=== PATIENT | female | born 1955 | race Caucasian/White ===

== ENCOUNTER 2017-09-09 14:02 | Observation (INO) | payer MEDICARE ==
[2017-09-09 15:10] LABS: BASOPHIL % 0.1 % (0.0-0.4); Basophil (Absolute #) 0.01 (0-0.4); Eosinophil % 3.7 % (0.00-5.0); Eosinophil (Absolute #) 0.26 (0-0.5); Granulocyte Absolute (ANC) 3.78 (1.4-6.9); Granulocytes % 53.9 % (36.0-66.0); Hematocrit 31.5 % (35-47); Hemoglobin 10.4 gm/dl (12.0-16.0); INR 0.99 (0.8-3.0); Lymphocyte (Absolute #) 2.43 (1.0-4.6); Lymphocytes % 34.7 % (24.0-44.0); Mean Corpuscular Hemoglobin 28.7 pg (26-32); Mean Platelet Volume 10.8 fl (6-9.5); Monocyte (Absolute #) 0.53 (0.0-1.3); Monocytes % 7.6 % (0.0-12.0); Platelet Count 254 K/mm3 (150-450); Red Blood Count 3.62 M/mm3 (4.1-5.4); Red Cell Distribution Width 14.7 % (11.5-14.0)
[2017-09-09 15:15] LABS: ALBUMIN 3.9 g/dL (3.5-5.0); ANION GAP 12.9 MEQ/L (5-15); BILIRUBIN,TOTAL 0.5 mg/dL (0.2-1.3); Calcium 9.1 mg/dL (8.4-10.2); Creatinine 1 1.19 mg/dL (0.52-1.04); Total Protein 6.5 g/dL (6.3-8.2)
[2017-09-09] MEDS ORDERED: Sodium Chloride 0.9% 1000 ML 1,000 ML IV SCH (15:15)
--- NOTE | 2017-09-09 18:45 | ERPHSYRPT ---
- History of Present Illness Time Seen by Provider: 09/09/17 14:30 Source: patient Exam Limitations: clinical condition Patient Subjective Stated Complaint: dizziness while visiting at the senior care. states has had a hx of dizziness x 1 year.. did not eat tioday. Triage Nursing Assessment: alert and oriented with no dizziness at this time.. has had episodes of dizziness x 1 year. states has had visual problems intermittently x 1 year. ATK[place]SON able to ambulate to BR on arrival to ER with no difficulty and steady gait. 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 Physician History: PATIENT WITH A HISTORY OF HYPERTENSION COMPLAINS OF ACUTE ONSET OF DYSPHASIA AND DYSARTHRIA WHILE VISITING FAMILY MEMBER, DURATION OF 20 MINUTES. HAD PREVIOUS EPISODE IN THE PAST, EVALUATED BY NEUROLOGIST. STATES SYMPTOMS RESOLVED PRIOR TO ARRIVAL. DENIES HEADACHE, BLURRED VISION, FOCAL NUMBNESS, TINGLING OR WEAKNESS IN EXTREMITIES. Timing/Duration: today (20 MINUTES) Severity: moderate Character of Deficits: none Deficits: no difficulties Baseline/Normal Cognition: alert oriented x 3 Current Cognition: alert oriented x 3 Baseline Gait: walks w/o assistance Associated Symptoms: slurred speech Allergies/Adverse Reactions: Penicillins Allergy (Verified 09/09/17 15:13) sulfamethoxazole [From Bactrim] Allergy (Verified 09/09/17 15:14) trimethoprim [From Bactrim] Allergy (Verified 09/09/17 15:14) codeine Adverse Reaction (Verified 09/09/17 15:14) ibuprofen Adverse Reaction (Verified 09/09/17 15:14) Home Medications: Atorvastatin Calcium [Lipitor] 40 mg PO DAILY 09/09/17 [History] Cyclobenzaprine HCl [Flexeril] 10 mg PO TIDPRN PRN 09/09/17 [History] Gabapentin [Neurontin] 600 mg PO TID 09/09/17 [History] Lisinopril/Hydrochlorothiazide [Lisinopril-Hctz 20-12.5 mg Tab] 1 each PO DAILY 09/09/17 [History] Metformin HCl [Metformin HCl ER] 500 mg PO DAILY 09/09/17 [History] Nebivolol HCl 5 MG [Bystolic 5 MG] 5 mg PO DAILY 09/09/17 [History] PANTOPRAZOLE 40 mg Tablet [Protonix 40MG Tablet] 40 mg PO QAM 09/09/17 [ History] Ranolazine 500 MG [Ranexa 500 MG] 500 mg PO BID 09/09/17 [History] Tramadol HCl 50 mg [Ultram 50 mg] 100 mg PO Q8H PRN PRN 09/09/17 [History] Immunizations Up to Date: (unknown) - Review of Systems Constitutional: No Fever, No Chills Eyes: No Symptoms Ears, Nose, & Throat: No Symptoms Respiratory: No Cough, No Dyspnea Cardiac: No Chest Pain, No Edema, No Syncope Abdominal/Gastrointestinal: No Abdominal Pain, No Nausea, No Vomiting, No Diarrhea Genitourinary Symptoms: No Dysuria Musculoskeletal: No Symptoms, No Back Pain, No Neck Pain Skin: No Rash Neurological: Speech Changes, No Dizziness, No Focal Weakness, No Sensory Changes Psychological: No Symptoms Endocrine: No Symptoms All Other Systems: Reviewed and Negative - Past Medical History Pertinent Past Medical History: Yes Cardiac History: High Cholesterol, Hypertension Respiratory History: Asthma, COPD Musculoskeletal History: Osteoarthritis GI Medical History: GERD Other Medical History: fibromyalgia - Past Surgical History Past Surgical History: Yes Other Surgical History: states has had20 but unsure of exactly what - Social History Smoking Status: Former smoker Exposure to second hand smoke: No Drug Use: none Patient Lives Alone: No - Female History Hx Now: No - Nursing Vital Signs Nursing Vital Signs: Initial Vital Signs Temperature 97.8 F 09/09/17 14:22 Pulse Rate 47 L 09/09/17 14:22 Respiratory Rate 18 09/09/17 14:22 Blood Pressure 144/72 09/09/17 14:22 O2 Sat by Pulse Oximetry 98 09/09/17 14:22 Pain Scale Pain Intensity 0 - [place] Coma Scale Best Eye Response (Chaya): (4) open spontaneously Best Verbal Response (Chaya): (5) oriented Best Motor Response ([place]): (6) obeys commands Chaya Total: 15 - Physical Exam General Appearance: no apparent distress, alert Eye Exam: bilateral eye: normal inspection, PERRL, EOMI Ears, Nose, Throat Exam: normal ENT inspection, moist mucous membranes Neck Exam: normal inspection, non-tender, supple Respiratory: normal breath sounds, lungs clear, airway intact, No respiratory distress Cardiovascular: regular rate/rhythm, normal heart sounds, No edema Gastrointestinal: soft, No tenderness, No distention Back Exam: normal inspection Extremity Exam: normal inspection, No pedal edema Peripheral Pulses: carotid (R): 2+, carotid (L): 2+, femoral (R): 2+, femoral (L ): 2+, dorsalis-pedis (R): 2+, dorsalis-pedis (L): 2+ Mental Status: alert, 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 hearing, normal speech, tongue midline Coordination/Gait: normal finger to nose, normal gait DTR: bicep (R): 2+, bicep (L): 2+, tricep (R): 2+, tricep (L): 2+, knee (R): 2+ , knee (L): 2+, ankle (R): 2+, ankle (L): 2+ Skin Exam: normal color, warm, dry, No rash SpO2: 100 Oxygen Delivery: Nasal Cannula - Course EKG Interpreted by Me: RATE, Sinus Rhythm, Sinus Camilo - Radiology Exams Chest X-ray Interpretation: Interpreted by me, Reviewed by me (ELEVATION RIGHT HEMIDIAPHRAM) - CT Exams Head CT Interpretation: No/Intracranial Hemorrhag Ordered Tests: Active Orders 24 hr Category Date Time Status EKG-ER Only STAT Care 09/09/17 15:02 Active IV Insertion STAT Care 09/09/17 15:02 Active Oxygen-ED Only NASAL CANNULA 2 lpm Care 09/09/17 15:02 Active CHEST 1 VIEW (PORTABLE) Stat Exams 09/09/17 16:02 Taken HEAD WITHOUT CONTRAST [CT] Stat Exams 09/09/17 15:04 Taken CBC W DIFF Stat Lab 09/09/17 14:30 Completed CMP Stat Lab 09/09/17 14:30 Completed PROTIME WITH INR Stat Lab 09/09/17 14:30 Completed TROPONIN Q3H Lab 09/09/17 14:30 Completed TROPONIN Q3H Lab 09/10/17 00:15 Ordered TROPONIN Q3H Lab 09/10/17 03:15 Ordered Medication Summary Generic Name Dose Route Start Last Admin Trade Name Freq PRN Reason Stop Dose Admin Sodium Chloride 1,000 mls @ 50 mls/hr 09/09/17 15:15 09/09/17 15:22 Sodium Chloride 0.9% 1000 Ml IV 10/09/17 15:14 50 mls/hr .Q20H PATRICIA Administration Lab/Rad Data: Laboratory Result Diagrams 09/09/17 14:30 09/09/17 14:30 Laboratory Results 09/09/17 09/09/17 09/09/17 Range/Units 14:30 14:30 14:30 WBC (4.0-10.5) K/mm3 RBC (4.1-5.4) M/mm3 Hgb (12.0-16.0) gm/dl Hct (35-47) % MCV (78-100) fl MCH (26-32) pg MCHC (32-36) g/dl RDW (11.5-14.0) % Plt Count (150-450) K/mm3 MPV (6-9.5) fl Gran % (36.0-66.0) % Eos # (Auto) (0-0.5) Absolute Lymphs (auto) (1.0-4.6) Absolute Monos (auto) (0.0-1.3) Lymphocytes % (24.0-44.0) % Monocytes % (0.0-12.0) % Eosinophils % (0.00-5.0) % Basophils % (0.0-0.4) % Absolute Granulocytes (1.4-6.9) Basophils # (0-0.4) PT 11.5 (9.95-12.35) SECONDS INR 0.99 (0.8-3.0) Sodium 133 L (137-145) mmol/L Potassium 4.0 (3.5-5.1) mmol/L Chloride 97 L (98-107) mmol/L Carbon Dioxide 27 (22-30) mmol/L Anion Gap 12.9 (5-15) MEQ/L BUN 16 (7-17) mg/dL Creatinine 1.19 H (0.52-1.04) mg/dL Estimated GFR 48.9 ML/MIN Glucose 110 H (74-106) mg/dL Calcium 9.1 (8.4-10.2) mg/dL Total Bilirubin 0.50 (0.2-1.3) mg/dL AST 18 (14-36) U/L ALT 13 (0-35) U/L Alkaline Phosphatase 164 H (38-126) U/L Troponin I < 0.012 (0.000-0.034) ng/mL Serum Total Protein 6.5 (6.3-8.2) g/dL Albumin 3.9 (3.5-5.0) g/dL 09/09/17 Range/Units 14:30 WBC 7.0 (4.0-10.5) K/mm3 RBC 3.62 L (4.1-5.4) M/mm3 Hgb 10.4 L (12.0-16.0) gm/dl Hct 31.5 L (35-47) % MCV 87.0 (78-100) fl MCH 28.7 (26-32) pg MCHC 33.0 (32-36) g/dl RDW 14.7 H (11.5-14.0) % Plt Count 254 (150-450) K/mm3 MPV 10.8 H (6-9.5) fl Gran % 53.9 (36.0-66.0) % Eos # (Auto) 0.26 (0-0.5) Absolute Lymphs (auto) 2.43 (1.0-4.6) Absolute Monos (auto) 0.53 (0.0-1.3) Lymphocytes % 34.7 (24.0-44.0) % Monocytes % 7.6 (0.0-12.0) % Eosinophils % 3.7 (0.00-5.0) % Basophils % 0.1 (0.0-0.4) % Absolute Granulocytes 3.78 (1.4-6.9) Basophils # 0.01 (0-0.4) PT (9.95-12.35) SECONDS INR (0.8-3.0) Sodium (137-145) mmol/L Potassium (3.5-5.1) mmol/L Chloride (98-107) mmol/L Carbon Dioxide (22-30) mmol/L Anion Gap (5-15) MEQ/L BUN (7-17) mg/dL Creatinine (0.52-1.04) mg/dL Estimated GFR ML/MIN Glucose (74-106) mg/dL Calcium (8.4-10.2) mg/dL Total Bilirubin (0.2-1.3) mg/dL AST (14-36) U/L ALT (0-35) U/L Alkaline Phosphatase (38-126) U/L Troponin I (0.000-0.034) ng/mL Serum Total Protein (6.3-8.2) g/dL Albumin (3.5-5.0) g/dL - Progress Progress: unchanged Discussed with Dr.: Yamile Monet (DISCUSSED WITH DR Cameron SWARTZ AT 1845 FOR OBSERVATIION) - Departure Time of Disposition: 18:55 Departure Disposition: Observation Clinical Impression: TRANSIENT ISCHEMIC ATTACK Condition: Stable Critical Care Time: No Referrals: Provider,Unknown [Primary Care Provider] -
[2017-09-09] MEDS ORDERED: TYLENOL 325 MG PO PRN (18:50)
[2017-09-09] MEDS ORDERED: Zestril 10 MG PO STA (18:53)
[2017-09-09] MEDS ORDERED: ULTRAM 50 MG PO PRN (18:55)
--- NOTE | 2017-09-09 20:59 | XRAY ---
Indication: Cough. Comparison: None Portable apical lordotic chest demonstrates right hemidiaphragm elevation with adjacent infiltrate/atelectasis. Remaining lungs clear. Heart is not enlarged. Bony thorax intact with mild spinal degenerative changes. Impression: Right hemidiaphragm elevation with adjacent infiltrate/atelectasis. Correlate clinically.
--- NOTE | 2017-09-09 21:01 | XRAY ---
Indication: Dizziness. Multiple contiguous axial images obtained through the head without contrast. Comparison: None Normal appearing brain parenchyma, ventricles, and bony calvarium. Visualized paranasal sinuses and mastoid air cells are clear. Impression: Normal CT head without contrast exam. Comment: Preliminary interpretation was made by [facility]. No discrepancy. CTDI 67.80
[2017-09-09] MEDS ORDERED: Zestril 10 MG ONE (22:00)
[2017-09-09] MEDS: NEURONTIN 300 MG PO SCH (22:12)
[2017-09-09] MEDS ORDERED: LIPITOR 40MG PO SCH (23:04)
[2017-09-09] MEDS ORDERED: VITAMIN D PO SCH (23:05)
[2017-09-09] MEDS ORDERED: FISH OIL 1,000 MG CAPSULE PO SCH (23:06)
[2017-09-09] MEDS ORDERED: ZOCOR 20MG PO SCH (23:56)
[2017-09-09] MEDS: Ranexa 500 MG PO SCH (23:57)
--- NOTE | 2017-09-10 09:02 | XRAY ---
Indication: Facial/bilateral arm numbness. Dizziness and blurred vision. Difficulty communicating. Sagittal, coronal, and axial MRI brain was performed without contrast using T1, T2, FLAIR, diffusion, and ADC sequences. Comparison: None Ventriculosulcal pattern appears symmetric. Age-appropriate global atrophy. No acute intracranial hemorrhage, abnormal extra-axial fluid collection, or mass effect. Diffusion images are negative for restricted signal. Fourth ventricle is midline without hydrocephalus. 7/8 cranial nerve complex bilaterally symmetric. Normal flow-void signal within the major intracerebral circulation. Anatomic variant for empty sella. Normal appearing craniocervical junction. Paranasal sinuses are clear. Impression: Negative MRI brain without contrast exam.
[2017-09-10] MEDS: NEURONTIN 300 MG PO SCH (09:34)
[2017-09-10] MEDS: Ranexa 500 MG PO SCH (09:34)
--- NOTE | 2017-09-10 09:52 | XRAY ---
Indication: TIA. Two-dimensional sonogram and color Doppler imaging of the carotid arteries of the neck performed. Comparison: None Examination of the right carotid circulation demonstrates tortuous common carotid artery. Very minimal eccentric soft plaquing at the level of the bulb. PSV of the CCA is 64 cm/s. PSV of the ICA is 119 cm/s. ICA/CCA ratio is 1.8. Normal antegrade vertebral artery flow. Examination of the left carotid circulation also demonstrates minimal eccentric heterogeneous plaquing of the level of the bulb. PSV of the CCA is 82 cm/s. PSV of the ICA is 134 cm/s. ICA/CCA ratio is 1.6. Normal antegrade vertebral artery flow. Impression: Very minimal arteriosclerotic plaquing bilaterally as detailed. Velocity measurements and ratios are negative for hemodynamically significant flow-limiting stenosis.
[2017-09-10] MEDS ORDERED: Zestril 20 MG*** 20 MG, hydroDIURIL 25 MG*** 12.5 MG PO SCH ×2 (10:00)
[2017-09-10] MEDS ORDERED: Bystolic 5 MG PO SCH (10:00)
[2017-09-10] MEDS ORDERED: ECOTRIN 81 MG PO SCH (10:00)
[2017-09-10] MEDS ORDERED: Protonix 40MG Tablet PO SCH (10:00)
[2017-09-10 11:26] VITALS: BP 144/63; PULSE 53; O2SAT 94
--- NOTE | 2017-09-10 12:35 | PCM.SSS ---
History of Present Illness - Chief Complaint Chief Complaint: c/o dizziness and difficulty in speech for 1 days History of Present Illness: is a 62 year old female.came to ER with c/o dizziness and difficulty in speech in AM. She has not eaten anything today AM and she thought thats what bring this episode. - Review of Systems Constitutional: No Fever, No Chills Eyes: No Symptoms Ears, Nose, & Throat: No Symptoms Respiratory: No Cough, No Short Of Breath Cardiac: No Chest Pain, No Edema, No Syncope Abdominal/Gastrointestinal: No Abdominal Pain, No Nausea, No Vomiting, No Diarrhea Genitourinary Symptoms: No Dysuria Musculoskeletal: No Back Pain, No Neck Pain Skin: No Rash Neurological: No Dizziness, No Focal Weakness, No Sensory Changes Psychological: No Symptoms Endocrine: No Symptoms Hematologic/Lymphatic: No Symptoms Immunological/Allergic: No Symptoms Medications & Allergies Home Medications: Home Medication List Atorvastatin Calcium [Lipitor] 40 mg PO QHS 09/09/17 [History Confirmed 09/09/17 ] Cholecalciferol (Vitamin D3) [Vitamin D3] 2,000 unit PO QHS 09/09/17 [History Confirmed 09/09/17] Cyclobenzaprine HCl [Flexeril] 10 mg PO TIDPRN PRN 09/09/17 [History Confirmed 09/09/17] Fish Oil/Borage/Flax/Om3,6,9 1 [Jollpvbx-Rpum-Pakcsi Oil Sftgl] 400 mg PO QHS [History Confirmed 09/09/17] Gabapentin [Neurontin] 600 mg PO TID 09/09/17 [History Confirmed 09/09/17] Lisinopril/Hydrochlorothiazide [Lisinopril-Hctz 20-12.5 mg Tab] 1 each PO DAILY 09/09/17 [History Confirmed 09/09/17] Naproxen Sodium 220 mg [Aleve 220 MG] 440 mg PO QHS PRN 09/09/17 [History Confirmed 09/09/17] Nebivolol HCl 5 MG [Bystolic 5 MG] 5 mg PO DAILY 09/09/17 [History Confirmed 09/09/17] PANTOPRAZOLE 40 mg Tablet [Protonix 40MG Tablet] 40 mg PO QAM 09/09/17 [ History Confirmed 09/09/17] Ranolazine 500 MG [Ranexa 500 MG] 1,000 mg PO BID 09/09/17 [History Confirmed 09/09/17] Tramadol HCl 50 mg [Ultram 50 mg] 100 mg PO Q8H PRN PRN 09/09/17 [History Confirmed 09/09/17] Allergies/Adverse Reactions: Allergies Allergy/AdvReac Type Severity Reaction Status Date / Time sulfamethoxazole Allergy Verified 09/09/17 15:14 [From Bactrim] trimethoprim [From Bactrim] Allergy Verified 09/09/17 15:14 codeine AdvReac Verified 09/09/17 15:14 ibuprofen AdvReac Verified 09/09/17 15:14 Penicillins AdvReac Verified 09/09/17 20:21 - Past Medical History Past Medical History: Yes Neurological History: No Pertinent History ENT History: No Pertinent History Cardiac History: High Cholesterol, Hypertension Respiratory History: Asthma, COPD Endocrine Medical History: No Pertinent History Musculoskelatal History: Fibromyalgia, Osteoarthritis GI Medical History: GERD History: No Pertinent History Pyscho-Social History: No Pertinent History Reproductive Disorders: No Pertinent History Comment: fibromyalgia - Female History Are you now?: No - Past Surgical History Past Surgical History: Yes Neuro Surgical History: No Pertinent History Cardiac History: No Pertinent History Respiratory Surgery: No Pertinent History GI Surgical History: Appendectomy, Cholecystectomy Genitourinary Surgical Hx: No Pertinent History Musculskeletal Surgical Hx: Orthopedic Surgery Female Surgical History: Tubal Ligation Other Surgical History: states has had20 but unsure of exactly what - Social History Smoking Status: Former smoker Exposure to second hand smoke: No Alcohol: None Drug Use: none - Physical Exam Vital Signs: Vital Signs - 24 hr Temp Pulse Resp BP Pulse Ox 09/10/17 11:25 98.6 F 53 L 18 144/63 94 L 09/10/17 10:20 97 09/10/17 07:21 98.8 F 49 L 18 110/49 94 L 09/10/17 04:07 98.1 F 46 L 18 121/59 100 09/10/17 04:00 18 09/10/17 00:03 98.2 F 54 L 22 150/63 99 09/10/17 00:00 22 09/09/17 21:40 56 L 20 99 09/09/17 20:29 98.3 F 59 L 16 189/79 100 09/09/17 18:48 100 09/09/17 18:43 48 L 18 164/58 97 09/09/17 17:40 50 L 18 157/77 97 09/09/17 16:24 52 L 18 148/58 100 09/09/17 15:10 50 L 16 157/72 97 09/09/17 15:08 53 L 18 154/57 97 09/09/17 14:22 97.8 F 47 L 18 144/72 98 Oxygen-Last 24 hours O2 Percentage 2 Liters = 28% O2 Percentage 2 Liters = 28% O2 Percentage 2 Liters = 28% O2 Percentage 2 Liters = 28% Oxygen Flowrate (L/min)-RT 2 General Appearance: no apparent distress, alert Neurologic Exam: alert, oriented x 3, cooperative, normal mood/affect, nml cerebellar function, nml station & gait, sensation nml, No motor deficits Eye Exam: PERRL/EOMI, eyes nml inspection Ears, Nose, Throat Exam: normal ENT inspection, TMs normal, pharynx normal, moist mucous membranes Neck Exam: normal inspection, non-tender, supple, full range of motion Respiratory Exam: normal breath sounds, lungs clear, No respiratory distress Cardiovascular Exam: regular rate/rhythm, normal heart sounds, normal peripheral pulses Gastrointestinal/Abdomen Exam: soft, normal bowel sounds, No tenderness, No mass Back Exam: normal inspection, normal range of motion, No CVA tenderness, No vertebral tenderness Extremity Exam: normal inspection, normal range of motion, pelvis stable Skin Exam: normal color, warm, dry, No rash Lymphatic Exam: No adenopathy Results - Labs Lab/Micro Results: Lab Results-Last 24 Hours 09/09/17 09/09/17 09/09/17 Range/Units 14:30 14:30 14:30 WBC 7.0 (4.0-10.5) K/mm3 RBC 3.62 L (4.1-5.4) M/mm3 Hgb 10.4 L (12.0-16.0) gm/dl Hct 31.5 L (35-47) % MCV 87.0 (78-100) fl MCH 28.7 (26-32) pg MCHC 33.0 (32-36) g/dl RDW 14.7 H (11.5-14.0) % Plt Count 254 (150-450) K/mm3 MPV 10.8 H (6-9.5) fl Gran % 53.9 (36.0-66.0) % Eos # (Auto) 0.26 (0-0.5) Absolute Lymphs (auto) 2.43 (1.0-4.6) Absolute Monos (auto) 0.53 (0.0-1.3) Lymphocytes % 34.7 (24.0-44.0) % Monocytes % 7.6 (0.0-12.0) % Eosinophils % 3.7 (0.00-5.0) % Basophils % 0.1 (0.0-0.4) % Absolute Granulocytes 3.78 (1.4-6.9) Basophils # 0.01 (0-0.4) PT 11.5 (9.95-12.35) SECONDS INR 0.99 (0.8-3.0) Sodium 133 L (137-145) mmol/L Potassium 4.0 (3.5-5.1) mmol/L Chloride 97 L (98-107) mmol/L Carbon Dioxide 27 (22-30) mmol/L Anion Gap 12.9 (5-15) MEQ/L BUN 16 (7-17) mg/dL Creatinine 1.19 H (0.52-1.04) mg/dL Estimated GFR 48.9 ML/MIN Glucose 110 H (74-106) mg/dL Calcium 9.1 (8.4-10.2) mg/dL Total Bilirubin 0.50 (0.2-1.3) mg/dL AST 18 (14-36) U/L ALT 13 (0-35) U/L Alkaline Phosphatase 164 H (38-126) U/L Troponin I (0.000-0.034) ng/mL Serum Total Protein 6.5 (6.3-8.2) g/dL Albumin 3.9 (3.5-5.0) g/dL 09/09/17 Range/Units 14:30 WBC (4.0-10.5) K/mm3 RBC (4.1-5.4) M/mm3 Hgb (12.0-16.0) gm/dl Hct (35-47) % MCV (78-100) fl MCH (26-32) pg MCHC (32-36) g/dl RDW (11.5-14.0) % Plt Count (150-450) K/mm3 MPV (6-9.5) fl Gran % (36.0-66.0) % Eos # (Auto) (0-0.5) Absolute Lymphs (auto) (1.0-4.6) Absolute Monos (auto) (0.0-1.3) Lymphocytes % (24.0-44.0) % Monocytes % (0.0-12.0) % Eosinophils % (0.00-5.0) % Basophils % (0.0-0.4) % Absolute Granulocytes (1.4-6.9) Basophils # (0-0.4) PT (9.95-12.35) SECONDS INR (0.8-3.0) Sodium (137-145) mmol/L Potassium (3.5-5.1) mmol/L Chloride (98-107) mmol/L Carbon Dioxide (22-30) mmol/L Anion Gap (5-15) MEQ/L BUN (7-17) mg/dL Creatinine (0.52-1.04) mg/dL Estimated GFR ML/MIN Glucose (74-106) mg/dL Calcium (8.4-10.2) mg/dL Total Bilirubin (0.2-1.3) mg/dL AST (14-36) U/L ALT (0-35) U/L Alkaline Phosphatase (38-126) U/L Troponin I < 0.012 (0.000-0.034) ng/mL Serum Total Protein (6.3-8.2) g/dL Albumin (3.5-5.0) g/dL - Radiology Impressions Radiology Exams & Impressions: Radiology Procedures Category Date Time Status CAROTID BILATERAL [US] Routine Exams 09/10/17 07:00 Completed CHEST 1 VIEW (PORTABLE) Stat Exams 09/09/17 16:02 Completed ECHO W/2D AND DOPPLER [US] Routine Exams 09/10/17 07:00 Taken HEAD WITHOUT CONTRAST [CT] Stat Exams 09/09/17 15:04 Completed MRI BRAIN W/O CONTRAST [MRI] Routine Exams 09/10/17 07:00 Completed Assessment/Plan (1) TIA (transient ischemic attack) Current Visit: Yes Status: Acute Code(s): G45.9 - TRANSIENT CEREBRAL ISCHEMIC ATTACK, UNSPECIFIED (2) HTN (hypertension) Current Visit: Yes Status: Acute Qualifiers: Hypertension type: essential hypertension Qualified Code(s): I10 - Essential (primary) hypertension Code(s): I10 - ESSENTIAL (PRIMARY) HYPERTENSION (3) Hyperlipidemia Current Visit: Yes Status: Acute Qualifiers: Hyperlipidemia type: mixed hyperlipidemia Qualified Code(s): E78.2 - Mixed hyperlipidemia Code(s): E78.5 - HYPERLIPIDEMIA, UNSPECIFIED Hospital Summary - Hospital Course Hospital Course: Chief Complaint Diagnosis TRANSIENT ISCHEMIC ATTACK Allergies Allergy/AdvReac Type Severity Reaction Status Date / Time sulfamethoxazole Allergy Verified 09/09/17 15:14 [From Bactrim] trimethoprim [From Bactrim] Allergy Verified 09/09/17 15:14 codeine AdvReac Verified 09/09/17 15:14 ibuprofen AdvReac Verified 09/09/17 15:14 Penicillins AdvReac Verified 09/09/17 20:21 Vital Signs (Last 24 hours) Temp Pulse Resp BP Pulse Ox 09/10/17 11:25 98.6 F 53 L 18 144/63 94 L 09/10/17 10:20 97 09/10/17 07:21 98.8 F 49 L 18 110/49 94 L 09/10/17 04:07 98.1 F 46 L 18 121/59 100 09/10/17 04:00 18 09/10/17 00:03 98.2 F 54 L 22 150/63 99 09/10/17 00:00 22 09/09/17 21:40 56 L 20 99 09/09/17 20:29 98.3 F 59 L 16 189/79 100 09/09/17 18:48 100 09/09/17 18:43 48 L 18 164/58 97 09/09/17 17:40 50 L 18 157/77 97 09/09/17 16:24 52 L 18 148/58 100 09/09/17 15:10 50 L 16 157/72 97 09/09/17 15:08 53 L 18 154/57 97 09/09/17 14:22 97.8 F 47 L 18 144/72 98 Home Medications Medication Instructions Recorded Confirmed Last Taken Type Atorvastatin Calcium [Lipitor] 40 mg PO QHS 09/09/17 09/09/17 09/09/17 History Cholecalciferol (Vitamin D3) 2,000 unit PO QHS 09/09/17 09/09/17 09/08/17 History [Vitamin D3] Cyclobenzaprine HCl [Flexeril] 10 mg PO TIDPRN PRN 09/09/17 09/09/17 09/09/17 History Fish Oil/Borage/Flax/Om3,6,9 1 400 mg PO QHS 09/09/17 09/09/17 09/08/17 History [Ljtjstkp-Rekr-Yjrpzp Oil Sftgl] Gabapentin [Neurontin] 600 mg PO TID 09/09/17 09/09/17 09/09/17 History Lisinopril/Hydrochlorothiazide 1 each PO DAILY 09/09/17 09/09/17 09/09/17 History [Lisinopril-Hctz 20-12.5 mg Tab] Naproxen Sodium 220 mg [Aleve 440 mg PO QHS PRN 09/09/17 09/09/17 08/29/17 History 220 MG] Nebivolol HCl 5 MG [Bystolic 5 5 mg PO DAILY 09/09/17 09/09/17 09/09/17 History MG] PANTOPRAZOLE 40 mg Tablet 40 mg PO QAM 09/09/17 09/09/17 09/09/17 History [Protonix 40MG Tablet] Ranolazine 500 MG [Ranexa 500 1,000 mg PO BID 09/09/17 09/09/17 09/09/17 History MG] Tramadol HCl 50 mg [Ultram 50 100 mg PO Q8H PRN PRN 09/09/17 09/09/17 History mg] Current Medications Generic Name Dose Route Start Last Admin Trade Name Freq PRN Reason Stop Dose Admin Acetaminophen 650 mg 09/09/17 18:50 Tylenol 325 Mg PO 10/09/17 18:49 Q4H PRN PRN PAIN AND/OR FEVER Aspirin 81 mg 09/10/17 10:00 09/10/17 09:33 Ecotrin 81 Mg PO 10/10/17 09:59 81 mg DAILY PATRICIA Administration Cholecalciferol 2,000 unit 09/09/17 23:05 09/09/17 23:57 Vitamin D PO 10/09/17 23:04 2,000 unit QHS PATRICIA Administration Lisinopril 20 mg/ 0 mg 09/10/17 10:00 09/10/17 09:35 Hydrochlorothiazide 12.5 mg PO 10/10/17 09:59 32.5 mg DAILY PATRICIA Administration Fish Oil 1,000 mg 09/09/17 23:06 09/09/17 23:57 Fish Oil 1,000 Mg Capsule PO 10/09/17 23:05 1,000 mg QHS PATRICIA Administration Gabapentin 600 mg 09/09/17 22:00 09/10/17 09:34 Neurontin 300 Mg PO 10/09/17 21:59 600 mg TID PATRICIA Administration Sodium Chloride 1,000 mls @ 20 mls/hr 09/09/17 15:15 09/09/17 15:22 Sodium Chloride 0.9% 1000 Ml IV 10/09/17 15:14 50 mls/hr .Q24H PATRICIA Administration Nebivolol 5 mg 09/10/17 10:00 09/10/17 09:33 Bystolic 5 Mg PO 10/10/17 09:59 5 mg DAILY PATRICIA Administration Pantoprazole Sodium 40 mg 09/10/17 10:00 09/10/17 09:34 Protonix 40mg Tablet PO 10/10/17 09:59 40 mg DAILY PATRICIA Administration Ranolazine 1,000 mg 09/09/17 23:13 09/10/17 09:34 Ranexa 500 Mg PO 10/09/17 23:12 1,000 mg BID PATRICIA Administration Simvastatin 40 mg 09/09/17 23:56 09/09/17 23:57 Zocor 20mg PO 10/09/17 23:55 40 mg HS PATRICIA Administration Tramadol HCl 50 mg 09/09/17 18:55 09/09/17 22:55 Ultram 50 Mg PO 10/09/17 18:54 50 mg QID PRN PRN Administration PAIN Discontinued Medications Generic Name Dose Route Start Last Admin Trade Name Freq PRN Reason Stop Dose Admin Atorvastatin Calcium 40 mg 09/09/17 23:04 Lipitor 40mg PO 10/09/17 23:03 QHS PATRICIA Lisinopril 20 mg 09/09/17 18:53 09/09/17 22:12 Zestril 10 Mg PO 09/09/17 18:54 20 mg STAT STA Administration Lisinopril Confirm 09/09/17 22:00 Zestril 10 Mg Administered 09/09/17 22:01 Dose 20 mg .ROUTE .STK-MED ONE Intake & Output (Last 24 hours) 09/08/17 09/09/17 09/10/17 09/11/17 11:59 11:59 11:59 11:59 Intake Total 870 Output Total 1950 Balance -1080 Weight 76.7 kg Laboratory Results (Last 24 hours) 09/09/17 09/09/17 09/09/17 14:30 14:30 14:30 WBC RBC Hgb Hct MCV MCH MCHC RDW Plt Count MPV Gran % Eos # (Auto) Absolute Lymphs (auto) Absolute Monos (auto) Lymphocytes % Monocytes % Eosinophils % Basophils % Absolute Granulocytes Basophils # PT 11.5 INR 0.99 Sodium 133 L Potassium 4.0 Chloride 97 L Carbon Dioxide 27 Anion Gap 12.9 BUN 16 Creatinine 1.19 H Estimated GFR 48.9 Glucose 110 H Calcium 9.1 Total Bilirubin 0.50 AST 18 ALT 13 Alkaline Phosphatase 164 H Troponin I < 0.012 Serum Total Protein 6.5 Albumin 3.9 09/09/17 14:30 WBC 7.0 RBC 3.62 L Hgb 10.4 L Hct 31.5 L MCV 87.0 MCH 28.7 MCHC 33.0 RDW 14.7 H Plt Count 254 MPV 10.8 H Gran % 53.9 Eos # (Auto) 0.26 Absolute Lymphs (auto) 2.43 Absolute Monos (auto) 0.53 Lymphocytes % 34.7 Monocytes % 7.6 Eosinophils % 3.7 Basophils % 0.1 Absolute Granulocytes 3.78 Basophils # 0.01 PT INR Sodium Potassium Chloride Carbon Dioxide Anion Gap BUN Creatinine Estimated GFR Glucose Calcium Total Bilirubin AST ALT Alkaline Phosphatase Troponin I Serum Total Protein Albumin Orders (Last 24 hours) Category Date Time Status Up Ad Sandra ROUTINE Activity 09/09/17 18:51 Active Call Admit Doctor for Orders ON ADMISSION Care 09/09/17 18:51 Active Code Status Order ROUTINE Care 09/09/17 18:50 Active EKG-ER Only STAT Care 09/09/17 15:02 Active IV Care Q6H Care 09/09/17 18:50 Active IV Insertion STAT Care 09/09/17 15:02 Active Neuro Checks Q2H Care 09/10/17 00:00 Active Oxygen-ED Only NASAL CANNULA 2 lpm Care 09/09/17 15:[address] in Observation ROUTINE Care 09/09/17 18:50 Active SCD's [Sequential Compression Device] Q6H Care 09/09/17 23:24 Active Vital Signs Q4H Care 09/09/17 18:50 Active CAROTID BILATERAL [US] Routine Exams 09/10/17 07:00 Completed CHEST 1 VIEW (PORTABLE) Stat Exams 09/09/17 16:02 Completed ECHO W/2D AND DOPPLER [US] Routine Exams 09/10/17 07:00 Taken HEAD WITHOUT CONTRAST [CT] Stat Exams 09/09/17 15:04 Completed MRI BRAIN W/O CONTRAST [MRI] Routine Exams 09/10/17 07:00 Completed CBC W DIFF Stat Lab 09/09/17 14:30 Completed CMP Stat Lab 09/09/17 14:30 Completed PROTIME WITH INR Stat Lab 09/09/17 14:30 Completed TROPONIN Q3H Lab 09/09/17 14:30 Completed Acetaminophen 325 mg [Tylenol 325 mg] Med 09/09/17 18:50 Active 650 mg PO Q4H PRN PRN Aspirin EC 81 mg [Ecotrin 81 mg] Med 09/10/17 10:00 Active 81 mg PO DAILY Atorvastatin Calcium [Lipitor 40Mg] Med 09/09/17 23:04 Discontinued 40 mg PO QHS Cholecalciferol (Vitamin D3) [Vitamin D] Med 09/09/17 23:05 Active 2,000 unit PO QHS Gabapentin 300 mg [Neurontin 300 mg] Med 09/09/17 22:00 Active 600 mg PO TID Lisinopril 10 mg [Zestril 10 MG] Med 09/09/17 22:00 Discontinued 20 mg .ROUTE .STK-MED ONE Lisinopril 10 mg [Zestril 10 MG] Med 09/09/17 18:53 Discontinued 20 mg PO STAT STA Lisinopril 20 mg [Zestril 20 MG] 20 mg Med 09/10/17 10:00 Active Hydrochlorothiazide 25 mg [hydroDIURIL 25 MG] 12. 5 mg PO DAILY NaCl 0.9% 1000 ml [Sodium Chloride 0.9% 1000 ML] 1,000 Med 09/09/17 15:15 Active ml IV 20 mls/hr Nebivolol HCl 5 MG [Bystolic 5 MG] Med 09/10/17 10:00 Active 5 mg PO DAILY [place]-3 Fatty Acids/Fish Oil [Fish Oil 1,000 mg Med 09/09/17 23:06 Active Capsule] 1,000 mg PO QHS PANTOPRAZOLE 40 mg Tablet [Protonix 40MG Tablet] Med 09/10/17 10:00 Active 40 mg PO DAILY Ranolazine 500 MG [Ranexa 500 MG] Med 09/09/17 23:13 Active 1,000 mg PO BID Simvastatin 20Mg [Zocor 20Mg] Med 09/09/17 23:56 Active 40 mg PO HS Tramadol HCl 50 mg [Ultram 50 mg] Med 09/09/17 18:55 Active 50 mg PO QID PRN PRN OT Eval and Treat (MD Order) ROUTINE OT 09/10/17 08:00 Active PT Eval & Treat (MD Order) ROUTINE PT 09/10/17 08:00 Active Oxygen NASAL CANNULA 2 lpm RT 09/09/17 21:50 Completed RT Screen per Nursing Assess ONCE RT 09/09/17 21:06 Completed Speech Therapy Eval & Treat [ST Eval & Treat (MD Order) ST 09/10/17 08:00 Completed ] .as ordered Patient Care Notes (Last 24 hours) 09/10/17 00:42 Respiratory Note by Omar Pineda WHEN I DID PT ASSESSMENT SHE STATED THAT SHE DOES NOT USE HM O2. SHE STATED THAT SHE USED TO USE BREO BUT HAD STOPPED ABOUT A COUPLE MONTHS AGO WHEN SHE KEPT GETTING THRUSH. SHE STATED SHE WAS WAITING UNTIL HER NEXT PULM APPT. TO REQUEST A DIFFERENT RX. SHE ALSO USES A RESCUE INHALER BUT WAS UNSURE OF THE NAME AND STATED THAT SHE HASN'T HAD TO USE IN OVER A MONTH. PT USES A BIPAP BUT UNAWARE OF HER SETTINGS. SHE SAID THAT SHE DID NOT WANT ONE THIS EVENING, THAT SHE FELT SHE WOULD BE FINE WITHOUT IT. SHE GETS HER SUPPLIES FROM A PLACE CALLED "[employer]" IN [place] FOR HER BIPAP. SHE SEES MADY IRVING WHO IS A NURSE PRACTITIONER A FAMILY PHYSICIAN. Initialized on 09/10/17 00:42 - END OF NOTE - Vitals & Intake/Output Vital Signs: Vital Signs Temperature 98.6 F 09/10/17 11:25 Pulse Rate 53 L 09/10/17 11:25 Respiratory Rate 18 09/10/17 11:25 Blood Pressure 144/63 09/10/17 11:25 O2 Sat by Pulse Oximetry 94 L 09/10/17 11:25 Oxygen-Last Documented O2 Percentage 2 Liters = 28% Intake & Output: Intake & Output 09/08/17 09/09/17 09/10/17 09/11/17 11:59 11:59 11:59 11:59 Intake Total 870 Output Total 1950 Balance -1080 Weight 76.7 kg - Lab Result Diagrams: 09/09/17 14:30 09/09/17 14:30 Lab Results-Last 24 Hrs: Lab Results-Last 24 Hours 09/09/17 09/09/17 09/09/17 Range/Units 14:30 14:30 14:30 WBC 7.0 (4.0-10.5) K/mm3 RBC 3.62 L (4.1-5.4) M/mm3 Hgb 10.4 L (12.0-16.0) gm/dl Hct 31.5 L (35-47) % MCV 87.0 (78-100) fl MCH 28.7 (26-32) pg MCHC 33.0 (32-36) g/dl RDW 14.7 H (11.5-14.0) % Plt Count 254 (150-450) K/mm3 MPV 10.8 H (6-9.5) fl Gran % 53.9 (36.0-66.0) % Eos # (Auto) 0.26 (0-0.5) Absolute Lymphs (auto) 2.43 (1.0-4.6) Absolute Monos (auto) 0.53 (0.0-1.3) Lymphocytes % 34.7 (24.0-44.0) % Monocytes % 7.6 (0.0-12.0) % Eosinophils % 3.7 (0.00-5.0) % Basophils % 0.1 (0.0-0.4) % Absolute Granulocytes 3.78 (1.4-6.9) Basophils # 0.01 (0-0.4) PT 11.5 (9.95-12.35) SECONDS INR 0.99 (0.8-3.0) Sodium 133 L (137-145) mmol/L Potassium 4.0 (3.5-5.1) mmol/L Chloride 97 L (98-107) mmol/L Carbon Dioxide 27 (22-30) mmol/L Anion Gap 12.9 (5-15) MEQ/L BUN 16 (7-17) mg/dL Creatinine 1.19 H (0.52-1.04) mg/dL Estimated GFR 48.9 ML/MIN Glucose 110 H (74-106) mg/dL Calcium 9.1 (8.4-10.2) mg/dL Total Bilirubin 0.50 (0.2-1.3) mg/dL AST 18 (14-36) U/L ALT 13 (0-35) U/L Alkaline Phosphatase 164 H (38-126) U/L Troponin I (0.000-0.034) ng/mL Serum Total Protein 6.5 (6.3-8.2) g/dL Albumin 3.9 (3.5-5.0) g/dL 09/09/17 Range/Units 14:30 WBC (4.0-10.5) K/mm3 RBC (4.1-5.4) M/mm3 Hgb (12.0-16.0) gm/dl Hct (35-47) % MCV (78-100) fl MCH (26-32) pg MCHC (32-36) g/dl RDW (11.5-14.0) % Plt Count (150-450) K/mm3 MPV (6-9.5) fl Gran % (36.0-66.0) % Eos # (Auto) (0-0.5) Absolute Lymphs (auto) (1.0-4.6) Absolute Monos (auto) (0.0-1.3) Lymphocytes % (24.0-44.0) % Monocytes % (0.0-12.0) % Eosinophils % (0.00-5.0) % Basophils % (0.0-0.4) % Absolute Granulocytes (1.4-6.9) Basophils # (0-0.4) PT (9.95-12.35) SECONDS INR (0.8-3.0) Sodium (137-145) mmol/L Potassium (3.5-5.1) mmol/L Chloride (98-107) mmol/L Carbon Dioxide (22-30) mmol/L Anion Gap (5-15) MEQ/L BUN (7-17) mg/dL Creatinine (0.52-1.04) mg/dL Estimated GFR ML/MIN Glucose (74-106) mg/dL Calcium (8.4-10.2) mg/dL Total Bilirubin (0.2-1.3) mg/dL AST (14-36) U/L ALT (0-35) U/L Alkaline Phosphatase (38-126) U/L Troponin I < 0.012 (0.000-0.034) ng/mL Serum Total Protein (6.3-8.2) g/dL Albumin (3.5-5.0) g/dL - Radiology Exams Ordered Rad Exams-Entire Visit: Radiology Procedures Category Date Time Status CAROTID BILATERAL [US] Routine Exams 09/10/17 07:00 Completed CHEST 1 VIEW (PORTABLE) Stat Exams 09/09/17 16:02 Completed ECHO W/2D AND DOPPLER [US] Routine Exams 09/10/17 07:00 Taken HEAD WITHOUT CONTRAST [CT] Stat Exams 09/09/17 15:04 Completed MRI BRAIN W/O CONTRAST [MRI] Routine Exams 09/10/17 07:00 Completed - Procedures and Test Procedures and Tests throughout Hospitalization: Therapy Orders & Screens 09/09/17 21:06 RT Screen per Nursing Assess ONCE Comment: Protocol Order Physician Instructions: Greater than 3 points order RT Admission Screen Reason For Exam: Triggered on Admission Diagnosis: TRANSIENT ISCHEMIC ATTACK Diagnosis: TRANSIENT ISCHEMIC ATTACK Pneumonia: No Home O2: No Asthma: Yes CHF: No Home CPAP/BIPAP: Yes Home Nebs/MDI: No Total Points: 9 09/09/17 21:50 Oxygen NASAL CANNULA 2 lpm Comment: Diagnosis: TRANSIENT ISCHEMIC ATTACK 09/10/17 08:00 OT Eval and Treat (MD Order) ROUTINE Comment: Consulting Provider: Physician Instructions: Reason For Exam: Diagnosis: TRANSIENT ISCHEMIC ATTACK PT Eval & Treat ( Order) ROUTINE Reason for Eval:: TIA, Dr Order Diagnosis: TRANSIENT ISCHEMIC ATTACK Speech Therapy Eval & Treat [ST Eval & Treat (MD Order)] .as ordered Comment: Physician Instructions: Reason For Exam: Evaluate: Yes Treat: Yes Reason for Eval: TIA, Dr Order Diagnosis: TRANSIENT ISCHEMIC ATTACK - Discharge Discharge Date: 09/10/17 Disposition: Home, Self-Care Condition: Stable Prescriptions: Continue Nebivolol HCl 5 MG [Bystolic 5 MG] 5 mg PO DAILY Ranolazine 500 MG [Ranexa 500 MG] 1,000 mg PO BID PANTOPRAZOLE 40 mg Tablet [Protonix 40MG Tablet] 40 mg PO QAM Tramadol HCl 50 mg [Ultram 50 mg] 100 mg PO Q8H PRN PRN PRN Reason: Pain Lisinopril/Hydrochlorothiazide [Lisinopril-Hctz 20-12.5 mg Tab] 1 each PO DAILY Gabapentin [Neurontin] 600 mg PO TID Cyclobenzaprine HCl [Flexeril] 10 mg PO TIDPRN PRN PRN Reason: Muscle Spasms Atorvastatin Calcium [Lipitor] 40 mg PO QHS Fish Oil/Borage/Flax/Om3,6,9 1 [Hqhwhxmo-Zasd-Bfygfa Oil Sftgl] 400 mg PO QHS Cholecalciferol (Vitamin D3) [Vitamin D3] 2,000 unit PO QHS Naproxen Sodium 220 mg [Aleve 220 MG] 440 mg PO QHS PRN PRN Reason: Pain Follow up with: DOCTOR,NO FAMILY [Primary Care Provider] - 1 Week
[2017-09-10] MEDS ORDERED: NON-FORMULARY ITEM (Cyclobenzaprine Hcl [Flexeril] 10 MG) PO PRN (13:11)
[2017-09-10] MEDS ORDERED: NAPROXEN SODIUM PO PRN (13:11)
[2017-09-10] MEDS ORDERED: ULTRAM 50 MG PO PRN (13:11)
[2017-09-10] MEDS ORDERED: Naprosyn 500 MG PO PRN (13:13)
[2017-09-10] MEDS ORDERED: Cyclobenzaprine 10 MG PO PRN (13:14)
[2017-09-11] MEDS ORDERED: NON-FORMULARY ITEM (Lisinopril/Hydrochlorothiazide [Lisinopril-Hctz 20-12.5 Mg Tab] 1 EACH PO SCH (10:00)
== END 2017-09-10 13:15 | disposition home or self-care (01) ==
LOC: ED 14:02 → MED SURG 19:47
PROVIDERS: ADMIT General Practice; ATTEND General Practice
DX: G45.9 Transient cerebral ischemic attack, unspecified (principal); I10 Essential (primary) hypertension; E78.2 Mixed hyperlipidemia; E78.00 Pure hypercholesterolemia, unspecified; J44.9 Chronic obstructive pulmonary disease, unspecified; J45.909 Unspecified asthma, uncomplicated; K21.9 Gastro-esophageal reflux disease without esophagitis; M19.90 Unspecified osteoarthritis, unspecified site; Z79.899 Other long term (current) drug therapy
CPT/HCPCS: 36000; 36415; 70450; 70551; 71045; 80053; 84484; 85025; 85610; 93005; 93306; 93880; 94760; 99285; G0378; A9270-GY